=== PATIENT | female | born 1975 | race Two or more races ===

== ENCOUNTER → 2025-09-23 | Outpatient (CLI) | payer MEDICAID, SELFPAY ==
--- NOTE | 2025-09-23 13:00 | XR_ITS ---
Examination: MRI lumbar spine without contrast Date and time of exam: September 23, 2025, 1403 hours INDICATIONS: Left-sided lower back pain several years worse the last year Technique: Multiple MRI axial and sagittal sections lumbar spine. Sagittal T2-weighted images, TR 3500, TE 118 T1 weighted transverse sections, TR 688 T8.5, T2-weighted sagittal sections T1 weighted sagittal sections TR 621, TE 30 T2 axial sections, TR 4, 190, TE 84. Findings: Adequate [employer]we Wrestler lumbar vertebral bodies on the lateral view Mild disc narrowing L5-S1. No spondylolisthesis. Disc desiccation lower 3 lumbar levels L5-S1 partially extruded 9 mm central paracentral disc bulge displacing both S1 nerve roots, extending to the bilateral neural foramina with mild bilateral L5 ganglionic compression L4-L5 6 mm extruded central lumbar disc indenting the ventral margin of the thecal sac L3-L4 2 mm central lumbar disc bulge including central annular posterior disc tear More cephalad levels unremarkable IMPRESSION: L5-S1 9 mm central paracentral disc bulge displacing both S1 nerve roots and producing mild bilateral L5 ganglionic impression L4-L5 6 mm extruded central lumbar disc indenting the ventral margin thecal sac
== END | disposition home or self-care (01) ==
LOC: SMRI 12:54
PROVIDERS: Referring Provider Physician Assistant; Visit Provider Physician Assistant
DX: M51.370 Other intervertebral disc degeneration, lumbosacral region with discogenic back pain only (principal); M51.360 Other intervertebral disc degeneration, lumbar region with discogenic back pain only
CPT/HCPCS: 72148